=== PATIENT | male | born 1960 | race American Indian/Alaskan Native ===

== ENCOUNTER 2018-12-14 10:55 | Emergency (ER) | payer OTHER ==
--- NOTE | 2018-12-14 11:02 | Emergency Department Report ---
HPI - General Time Seen by Provider: 12/14/18 10:57 - HPI HPI: 58-year-old -[place] male presents to the emergency department from senior living with the complaint of slurred speech and a facial droop. There is no obvious last known well time and the facility is estimating at some time yesterday. Patient had some type of a head injury on Friday, 3 days ago, and allegedly went to another hospital for evaluation from this injury. Currently the patient has slurred speech and what appears to be some aphasia and is a poor historian. ED Review of Systems ROS: Stated complaint: STROKE Other details as noted in HPI Comment: Unobtainable due to pts medical conditions Physical Exam - Physical Exam Physical Exam: GENERAL: The patient is well-developed well-nourished. HENT: Normocephalic. Patient has moist mucous membranes. EYES: Extraocular motions are intact. Pupils equal reactive to light bilaterally. NECK: Supple. Trachea is midline. CHEST/LUNGS: Clear to auscultation. There is no respiratory distress noted. HEART/CARDIOVASCULAR: Regular. There is no tachycardia. There is no murmur. ABDOMEN: Abdomen is soft, nontender. Patient has normal bowel sounds. There is no abdominal distention. SKIN: There is a healing laceration to the posterior scalp with [address] NEURO: The patient is awake and cooperative. Patient has some dysarthria, aphasia. No pronator drift. There is some mild right-sided nasolabial for paresis. MUSCULOSKELETAL: There is no tenderness or deformity. There is no limitation range of motion. There is no evidence of acute injury. ED Course - Consultations Consultation #1: 12/14/18 14:19 I spoke to the stroke attending at [facility], Dr. Choi, who has accepted the patient for transfer and there will be a bed available in the step down unit, 8A. ED Medical Decision Making - Lab Data Result diagrams: 12/14/18 11:18 12/14/18 11:00 - EKG Data -: EKG Interpreted by Me EKG shows normal: sinus rhythm, axis, intervals, QRS complexes (LVH), ST-T waves (early repolarization) Rate: bradycardia (53 bpm) - EKG Data When compared to previous EKG there are: previous EKG unavailable Interpretation: other (sinus rhythm, LVH, bradycardia at 53 bpm, early repolarization) - Radiology Data Radiology results: report reviewed CT HEAD WITHOUT CONTRAST: HISTORY: Stroke symptoms. TECHNIQUE: Sequential 2.5mm CT images. COMPARISON: None at this facility. FINDINGS: Cerebral Parenchyma: There is a very large area of diminished attenuation in the left MCA distribution involving the posterior left frontal lobe, anterior left parietal lobe and superior left temporal lobe. There appears to be an underlying chronic cortical infarct in the left MCA distribution. There also appears to be areas of more subacute-appearing ischemia in the left MCA distribution along the margins of the chronic infarct. These findings suggest acute on chronic left MCA ischemia. There is also a chronic infarct in the left anterior [place] radiata measuring 1.6 x 0.7 cm. Mild underlying chronic white matter changes are also identified bilaterally. Cerebellum: Within normal limits. Brainstem: Within normal limits. Ventricles: Normal. Sella: Normal. Extra-axial spaces: A small low density left subdural collection is identified measuring up to 7 mm in thickness. Basal Cisterns: Normal. Intracranial Hemorrhage: 2 or 3 foci of hyperdensity are identified in the left parietal white matter on images 42-43 of series 4. This is consistent with small hemorrhagic foci. Midline Shift: None. Calvarium: Normal. Sinuses: Normal. Mastoid Air Cells: Normal. Visualized Orbits: Normal. IMPRESSION: Acute on chronic ischemia is suspected in the left MCA distribution as outlined above. 2 or 3 tiny foci of hemorrhage are identified in the left parietal white matter. Small chronic-appearing left subdural collection. CTA NECK: HISTORY: CVA. TECHNIQUE: Helical CT following IV contrast. Sagittal and coronal reformatted images. 3D volume rendering technique. Stenosis was calculated using NASCET criteria with the distal ICA being standard diameter. FINDINGS: The visualized aortic arch, innominate artery and proximal bilateral subclavian arteries are widely patent with less than 20% stenosis. Within the right carotid system: There is moderate partially calcified plaque in the proximal right ICA with stenosis measuring 60%. There is less than 20% stenosis in the remaining right carotid system. Within the left carotid system: There is mild to moderate partially calcified plaque in the proximal left ICA with stenosis measuring 25%. There is less than 20% stenosis in the remaining left carotid system. The cervical vertebral arteries are patent with less than 20% stenosis. IMPRESSION: [id number] atherosclerotic disease in both proximal ICAs as outlined above. Transcribed By: TTR Dictated By: YOVANNY HERRERA JR, MD Electronically Authenticated By: YOVANNY HERRERA JR, MD Signed Date/Time: 12/14/18 1405 CTA HEAD: HISTORY: CVA. TECHNIQUE: Helical CT images after IV contrast with 0.625mm reformations. Sagittal and coronal reformats. Rotational MIP images. 3D volume rendering technique. FINDINGS: Moderate to severe calcific plaque is identified in both supraclinoid ICAs with stenosis estimated at 50% bilaterally. Mild atherosclerotic disease is identified in the proximal MCA's bilaterally but no hemodynamically significant stenosis. The remainder of the MCA's appear patent with no evidence of occlusion. The anterior cerebral arteries are widely patent. The vertebral basilar system is widely patent. A small left posterior communicating artery is identified. No evidence for aneurysm or dissection. IMPRESSION: Moderate atherosclerotic disease in the supraclinoid ICAs bilaterally and proximal MCA's bilaterally as described. No large vessel occlusion is identified. Transcribed By: TTR Dictated By: YOVANNY HERRERA JR, MD Electronically Authenticated By: YOVANNY HERRERA JR, MD Signed Date/Time: 12/14/18 1407 - Medical Decision Making Patient presents to the emergency department from senior living with a complaint of some aphasia, dysarthria and right-sided facial droop. A code stroke was called and the CT of the head without contrast shows signs of acute on chronic left MCA stroke with a few small punctate hemorrhagic areas in the left parietal region. Patient was seen by the telemetry medicine neurologist who agrees the patient does not appear to be a TPA candidate as there is no known last one time known well time and now the patient has some small punctate areas of hemorrhage that could be conversion. The patient's presents with extremely elevated blood pressure. However they recommended permissive hypertension. Secondary to the fact that the patient has some small areas of bleeding, and since we do not have a neurosurgery service here, I contacted [facility] and the patient was accepted for transfer. Awaiting for transfer, the patient had a CTA of the head and neck that shows moderate atherosclerotic disease in the bilateral ICA region. - Differential Diagnosis CVA, TIA, encephalopathy, hypoglycemia Critical Care Time: Yes Critical care time in (mins) excluding proc time.: 35 Critical care attestation.: If time is entered above; I have spent that time in minutes in the direct care of this critically ill patient, excluding procedure time. Critical care time was spent on this patient during his initial evaluation, multiple evaluations, ordering and interpretation of labs and imaging, discussion with the patient, discussion with the telemedicine neurologist, discussion with the accepting facility. Critical Care Time: 35 minutes ED Disposition Clinical Impression: Hypertensive urgency, Brain bleed Stroke Qualifiers: CVA mechanism: unspecified Qualified Code(s): I63.9 - Cerebral infarction, un specified Disposition: DC/TX-70 ANOTHER TYPE HLTHCARE Is pt being admited?: No Condition: Serious Time of Disposition: 14:23 - Assessment Assessment Interval: Baseline - Level of Consciousness 1a. Level of Consciousness: alert/keenly responsive - LOC Questions 1b. LOC Questions: aphasic - LOC Command 1c. LOC Commands: performs tasks correctly - Best Gaze 2. Best Gaze: normal - Visual 3. Visual: no visual loss - Facial Palsy 4. Facial Palsy: partial paralysis - Motor Arm 5a. Motor Arm Left: drift 5b. Motor Arm Right: no drift - Motor Leg 6a. Motor Leg Left: no drift 6b. Motor Leg Right: no drift - Limb Ataxia 7. Limb Ataxia: absent - Sensory 8. Sensory: normal - Best Language 9. Best Language: severe aphasia - Dysarthria 10. Dysarthria: severe dysarthria - Extinction and Inattention 11. Extinction/Inattention: no abnormality - Scoring Total Score: 9 Stroke Severity: Moderate Stroke
--- NOTE | 2018-12-14 11:17 | Emergency Department Report ---
ED Neuro Deficit HPI - General Chief Complaint: Neuro Symptoms/Deficit Stated Complaint: STROKE Time Seen by Provider: 12/14/18 10:57 Source: EMS Mode of arrival: Stretcher Limitations: No Limitations - History of Present Illness Initial Comments: [facility] Date of Service: 12/14/18 Impression: L MCA territory infarct: seen on CT head. - - - Not a tpa candidate due to: unknown last normal Presentation is not suggestive of Large Vessel Occlusive Disease. Thrombectomy would not be recommended. Differential Diagnosis: 1. Cardioembolic 2. Thromboembolic, [id number]-ac-mnfrye mechanism 3. Hypercoagulable state-related infarct Comments: LKN: unknown, friday likely Door time: 10:55 [employer] contacted: 11:00 [employer] at bedside: 11:03 NIHSS assessment time: 11:14 Recommendations: -ASA -Permissive htn up to 220/120 -Check Hgb A1c and lipid panel -dysphagia screen -Telemetry -Glucose control per primary team, avoid hypo- and hyperglycemia -DVT prophylaxis -PT/OT/Speech Inpatient neurology consultation Inpatient stroke evaluation as per Neurology/ Internal Medicine Discussed with ED MD Please call with questions Roseline Hannah, DO [employer] --------- CC aphasia History of Present Illness 58 yo M who is presenting from longterm with slurred speech and facial droop. The last known well time is not known but the facility reports it to have been sometime yesterday. He had a head injury on friday. Unclear if symptoms started after that or yesterday. Diagnostic: CT head: L MCA territory subacute infarct Exam: NIHSS score: 11 1A: Level of Consciousness - Alert; keenly responsive 0 1B: Ask Month and Age - 0 Questions Right +2 1C: 'Blink Eyes' & 'Squeeze Hands' - Performs 0 Tasks +2 2: Test Horizontal Extraocular Movements - Normal 0 3: Test Visual Asif - No Visual Loss 0 4: Test Facial Palsy - Minor paralysis (flat nasolabial fold, smile asymetry) +1 5A: Test Left Arm Motor Drift - No Drift for 10 Seconds 0 5B: Test Right Arm Motor Drift - No Drift for 10 Seconds 0 6A: Test Left Leg Motor Drift - No Drift for 5 Seconds 0 6B: Test Right Leg Motor Drift - No Drift for 5 Seconds 0 7: Test Limb Ataxia - No Ataxia 0 8: Test Sensation - Mild-Moderate Loss: Less Sharp/More Dull +1 9: Test Language/Aphasia - [place]/Global Aphasia: No Usable Speech/Auditory Comprehensionute/Global Aphasia: No Usable Speech/Auditory Comprehension +3 10: Test Dysarthria - Mute/Anarthric +2 11: Test Extinction/Inattention - No abnormality 0 Medical Decision Making: - Extensive number of diagnosis or management options are considered above. - Extensive amount of complex data reviewed. - High risk of complication and/or morbidity or mortality are associated with differential diagnostic considerations above. - There may be Uncertain outcome and increased probability of prolonged functional impairment or high probability of severe prolonged functional impairment associated with some of these differential diagnosis. Medical Data Reviewed: 1.Data reviewed include clinical labs, radiology, Medical Tests; 2.Tests results discussed w/performing or interpreting physician; 3.Obtaining/reviewing old medical records; 4.Obtaining case history from another source; 5.Independent review of image, tracing or specimen. Patient was informed the Neurology Consult would happen via TeleHealth consult by way of interactive audio and video telecommunications and consented to receiving care in this manner. ED Review of Systems ROS: Stated complaint: STROKE Other details as noted in HPI ED Neuro Physical Exam - General Limitations: No Limitations Suspected Stroke: Yes - NIHSS Assessment Interval: Baseline 1a. Level of Consciousness: alert/keenly responsive 1b. LOC Questions: answers no questions correctly 1c. LOC Commands: performs no tasks correctly 2. Best Gaze: normal 3. Visual: no visual loss 4. Facial Palsy: minor paralysis 5b. Motor Arm Right: no drift 5a. Motor Arm Left: no drift 6a. Motor Leg Left: no drift 6b. Motor Leg Right: no drift 7. Limb Ataxia: absent 8. Sensory: mild/moderate sensory loss 9. Best Language: mute/global aphasia 10. Dysarthria: severe dysarthria 11. Extinction/Inattention: no abnormality Total Score: 11 Stroke Severity: Moderate Stroke Critical care attestation.: If time is entered above; I have spent that time in minutes in the direct care of this critically ill patient, excluding procedure time. ED Disposition Clinical Impression: Stroke Disposition: DC-09 OP ADMIT IP TO THIS HOSP Is pt being admited?: Yes Condition: Stable
--- NOTE | 2018-12-14 11:27 | Cat Scan Report ---
CT HEAD WITHOUT CONTRAST: HISTORY: Stroke symptoms. TECHNIQUE: Sequential 2.5mm CT images. COMPARISON: None at this facility. FINDINGS: Cerebral Parenchyma: There is a very large area of diminished attenuation in the left MCA distribution involving the posterior left frontal lobe, anterior left parietal lobe and superior left temporal lobe. There appears to be an underlying chronic cortical infarct in the left MCA distribution. There also appears to be areas of more subacute-appearing ischemia in the left MCA distribution along the margins of the chronic infarct. These findings suggest acute on chronic left MCA ischemia. There is also a chronic infarct in the left anterior [place] radiata measuring 1.6 x 0.7 cm. Mild underlying chronic white matter changes are also identified bilaterally. Cerebellum: Within normal limits. Brainstem: Within normal limits. Ventricles: Normal. Sella: Normal. Extra-axial spaces: A small low density left subdural collection is identified measuring up to 7 mm in thickness. Basal Cisterns: Normal. Intracranial Hemorrhage: 2 or 3 foci of hyperdensity are identified in the left parietal white matter on images 42-43 of series 4. This is consistent with small hemorrhagic foci. Midline Shift: None. Calvarium: Normal. Sinuses: Normal. Mastoid Air Cells: Normal. Visualized Orbits: Normal. IMPRESSION: Acute on chronic ischemia is suspected in the left MCA distribution as outlined above. 2 or 3 tiny foci of hemorrhage are identified in the left parietal white matter. Small chronic-appearing left subdural collection. These findings were discussed with Dr. Kdid in the emergency department at 1118 hrs.
[2018-12-14] MEDS ORDERED: APRESOLINE IV ONE (11:29)
[2018-12-14 11:30] LABS: Basophils # (Auto) 0.1 K/mm3 (0.0-0.1); Basophils % (Auto) 1.3 % (0.0-1.8); Eosinophils # (Auto) 0.1 K/mm3 (0.0-0.4); Eosinophils % (Auto) 2.3 % (0.0-4.3); Hematocrit 45.3 % (35.5-45.6); Hemoglobin 14.9 gm/dl (11.8-15.2); Lymphocytes % (Auto) 32.1 % (13.4-35.0); Mean Corpuscular HGB Conc 33 % (32-34); Mean Corpuscular Volume 92 fl (84-94); Monocytes # (Auto) 0.5 K/mm3 (0.0-0.8); Monocytes % (Auto) 8.3 % (0.0-7.3); Platelet Count 138 K/mm3 (140-440); Red Cell Distribution Width 14.7 % (13.2-15.2)
[2018-12-14] MEDS ORDERED: APRESOLINE ONE (11:32)
[2018-12-14 11:39] LABS: INR 1.16 (0.87-1.13)
[2018-12-14 11:40] LABS: Thrombin Time 18.1 Sec. (15.1-19.6)
[2018-12-14 11:49] LABS: Creatine Kinase MB 1.4 ng/mL (0.0-4.0)
[2018-12-14 11:51] LABS: Alanine Aminotransferase 18 units/L (7-56); Albumin 3.9 g/dL (3.9-5); BUN/Creatinine Ratio 13; Blood Urea Nitrogen 9 mg/dL (9-20); Calcium 9.6 mg/dL (8.4-10.2); Hemolysis Index 7
[2018-12-14 12:22] LABS: Bilirubin,Urine NEG (Negative); Blood,Urine NEG (Negative); Color,Urine Amber (Yellow); Mucus,Urine FEW /HPF; Protein,Urine <15 mg/dL mg/dL (Negative)
[2018-12-14 12:33] LABS: Amphetamine Screen,Urine PRESUMPTIVE NEGATIVE; Benzodiazepines Screen,Urine PRESUMPTIVE NEGATIVE; Cocaine Screen,Urine PRESUMPTIVE NEGATIVE; Methadone Screen,Urine PRESUMPTIVE NEGATIVE; Opiate Screen,Urine PRESUMPTIVE NEGATIVE
[2018-12-14 12:55] LABS: Cannabinoid Screen,Urine PRESUMPTIVE POSITIVE
--- NOTE | 2018-12-14 14:10 | Cat Scan Report ---
CTA NECK: HISTORY: CVA. TECHNIQUE: Helical CT following IV contrast. Sagittal and coronal reformatted images. 3D volume rendering technique. Stenosis was calculated using NASCET criteria with the distal ICA being standard diameter. FINDINGS: The visualized aortic arch, innominate artery and proximal bilateral subclavian arteries are widely patent with less than 20% stenosis. Within the right carotid system: There is moderate partially calcified plaque in the proximal right ICA with stenosis measuring 60%. There is less than 20% stenosis in the remaining right carotid system. Within the left carotid system: There is mild to moderate partially calcified plaque in the proximal left ICA with stenosis measuring 25%. There is less than 20% stenosis in the remaining left carotid system. The cervical vertebral arteries are patent with less than 20% stenosis. IMPRESSION: [id number] atherosclerotic disease in both proximal ICAs as outlined above.
--- NOTE | 2018-12-14 14:13 | Cat Scan Report ---
CTA HEAD: HISTORY: CVA. TECHNIQUE: Helical CT images after IV contrast with 0.625mm reformations. Sagittal and coronal reformats. Rotational MIP images. 3D volume rendering technique. FINDINGS: Moderate to severe calcific plaque is identified in both supraclinoid ICAs with stenosis estimated at 50% bilaterally. Mild atherosclerotic disease is identified in the proximal MCA's bilaterally but no hemodynamically significant stenosis. The remainder of the MCA's appear patent with no evidence of occlusion. The anterior cerebral arteries are widely patent. The vertebral basilar system is widely patent. A small left posterior communicating artery is identified. No evidence for aneurysm or dissection. IMPRESSION: Moderate atherosclerotic disease in the supraclinoid ICAs bilaterally and proximal MCA's bilaterally as described. No large vessel occlusion is identified.
[2018-12-14 15:22] VITALS: BP 164/90
== END 2018-12-14 15:25 | disposition other institution (70) ==
LOC: ED 10:55
DX: I63.9 Cerebral infarction, unspecified (principal); I16.0 Hypertensive urgency
CPT/HCPCS: 36415; 70450; 70496; 70498; 80053; 80307; 81001; 82550; 82553; 82962; 84484; 85025; 85610; 85670; 85730; 86850; 86900; 86901; 93005; 93010; 96374; 99291; G0480; J0360; Q9967; 80320